=== PATIENT | male | born 1990 | race African-American/Black ===

== ENCOUNTER 2017-01-20 08:58 | Day surgery (SDC) | payer OTHER ==
--- NOTE | 2017-01-20 10:46 | OR ---
Anesthesia Pre Procedure Eval Date of Service: 01/20/17 Pre Procedure Evaluation: Last Vital Signs Temp 36.8 C 01/20/17 10:27 Pulse 88 01/20/17 10:27 Resp 16 01/20/17 10:27 BP 131/86 01/20/17 10:27 Pulse Ox 98 01/20/17 10:27 Anesthesia Pre Procedure Evaluation DATE: 01/20/2017 TIME: 10:40 AM INDICATIONS: Low back pain, multilevel disc bulge PAST MEDICAL HISTORY: Long history of low back pain associated with bulging lumbar discs. He has had a previous series of epidural injections with good relief in the past. His most recent injection has been over 2 years ago which he claims to have had very good relief at that point. His most recent injection apparently afforded good relief for over a year he has had increasing pain particularly over the last month or 2 he is now seeking relief with epidural. History of GERD: No History of smoking: Know History of sleep apnea: Known EXAM: Heart S1-S2 regular; lungs clear bilaterally ASSESSMENT OF MEDICAL STATUS: Appropriate candidate for epidural injection PLANNED PROCEDURE: Epidural steroid injection, lumbar Home Medications: HOME MEDICATIONS traMADol HCL [Ultram] 50 - 100 mg PO QID PRN 09/18/15 [Last Taken Unknown] Lorazepam [Ativan] 6 mg PO PRN 01/20/17 [Last Taken Unknown]
[2017-01-20] MEDS: DEXAMETHASONE SOD PHOSPHATE 10 MG/ML VIAL IJ ONE (11:05)
[2017-01-20] MEDS: LIDOCAINE HCL/PF 5 ML VIAL IJ ONE (11:05)
[2017-01-20] MEDS: IOPAMIDOL 20 ML VIAL IJ ONE (11:05)
--- NOTE | 2017-01-20 11:14 | OR ---
Anesthesia Procedure Note - Anesthesia Procedure Note Date of Service: 01/20/17 Narrative: Vital Signs - Last Taken Temp 36.8 C 01/20/17 10:27 Pulse 88 01/20/17 10:27 Resp 16 01/20/17 10:27 BP 131/86 01/20/17 10:27 Pulse Ox 98 01/20/17 10:27 01/20/17 11:12 ANESTHESIA PROCEDURE NOTE Date of Procedure: 01/20/2017 Time of procedure: 11 AM. Performed by: KAMILA Guerrero CRNAP, MSN Strategy Analyst: Erica Nuñez RN. Preprocedure diagnosis: Multilevel lumbar disc bulge, low back pain. Post procedure diagnosis: Same. Procedure: Epidural Steroid Injection L5-S1. Indications: Low back pain. Findings: See below. Details of the procedure: After the MRI report and films were reviewed, the patient was interviewed where risks and the procedure were explained. The patient was then brought to for a #4 and was placed in the prone position. The back was prepped with DuraPrep and draped in a sterile fashion. The lumbar area was identified under fluoroscopy and the L5-S1 space was localized with 1% lidocaine solution. The epidural space was identified using loss of resistance technique using a #20-gauge Touhy needle. 1 mL of Isovue was injected while the C-arm was positioned in the lateral orientation. The C-arm was then readjusted to an AP view and Isovue 200 1 milliliters was injected demonstrating a spread at the affected area. Dexamethasone 10mg and lidocaine 1 % 5 mL was injected, stylette was replaced and the epidural needle removed. A Band-Aid was then applied to the injection site, patient was placed in a supine position for 5 minutes then returned to ASU with good relief of pain, from a 8/ 10 to 0/10. EBL: None. Energy: 15.2 Seconds, 2.9 mGy Fluids: N/A. Specimen: N/A. Post procedure condition: The patient tolerated the procedure well. No complications were noted. Thank you for this consultation. Maynor Stern CRNA, MSN, [employer]
[2017-01-20 11:43] VITALS: BP 116/50
== END 2017-01-20 08:59 | disposition home or self-care (01) ==
LOC: AMB 08:58
PROVIDERS: ATTEND Allergy & Immunology
PROC: 3E0S3BZ Introduction of Anesthetic Agent into Epidural Space, Percutaneous Approach (ICD-10-PCS; 2017-01-20)
PROC: 3E0S33Z Introduction of Anti-inflammatory into Epidural Space, Percutaneous Approach (ICD-10-PCS; principal; 2017-01-20 11:00)
DX: M51.26 Other intervertebral disc displacement, lumbar region (principal); Z68.27 Body mass index [BMI] 27.0-27.9, adult